=== PATIENT | male | born 1955 | race Caucasian/White ===

== ENCOUNTER 2023-05-30 08:14 | Day surgery (SDC) | payer BC ==
[2023-05-29 15:46] LABS: BASOPHILS # (AUTO) 0.1 X10'3 (0-0.2); BASOPHILS % (AUTO) 0.9 % (0-1); EOSINOPHILS # (AUTO) 0.3 X10'3 (0-0.9); EOSINOPHILS % (AUTO) 3.3 % (0-6); LYMPHOCYTES # (AUTO) 1.5 X10'3 (1.1-4.8); LYMPHOCYTES % (AUTO) 16.9 % (21-51); MEAN CORPUSCULAR HEMOGLOBIN 33.4 PG (27.0-31.0); MEAN CORPUSCULAR HGB CONC 35.1 g/dL (33.0-36.5); MEAN CORPUSCULAR VOLUME 95.3 FL (78-98); MEAN PLATELET VOLUME 9.4 FL (7.4-10.4); MONOCYTES # (AUTO) 0.7 X10'3 (0-0.9); MONOCYTES % (AUTO) 8.3 % (2-12); NEUTROPHILS # (AUTO) 6.1 X10'3 (1.8-7.7); NEUTROPHILS % (AUTO) 70.6 % (42-75); PRE OP HEMATOCRIT 45.5 % (42.0-52.0); PRE OP HEMOGLOBIN 15.9 g/dL (14.0-17.9); PRE OP PLATELET COUNT 217 X10'3 (140-440); PRE OP WHITE BLOOD COUNT 8.6 10'3 (4.8-10.8); RED BLOOD COUNT 4.77 X10'6 (4.70-6.10); RED CELL DISTRIBUTION WIDTH 12.9 % (11.5-14.5)
[2023-05-29 15:58] LABS: ALBUMIN 4.1 G/DL (3.4-5.0); ALBUMIN/GLOBULIN RATIO 1.3 (1.1-1.5); ALKALINE PHOSPHATASE 71 IU/L (46-116); BLOOD UREA NITROGEN 16 MG/DL (7-18); BUN/CREATININE RATIO 18.6 (10.0-20.0); CALCIUM 9.3 MG/DL (8.5-10.1); CHLORIDE 103 MMOL/L (99-107); CREATININE 0.86 MG/DL (0.60-1.10); PRE OP ALT 73 U/L (30-65); PRE OP ANION GAP 8 (8-16); PRE OP AST 28 U/L (10-37); PRE OP BILIRUB, TOTAL 0.6 MG/DL (0.0-1.0); PRE OP GLUCOSE 101 MG/DL (70-104); PRE OP POTASSIUM 3.9 MMOL/L (3.4-5.1); PRE OP SODIUM 140 MMOL/L (135-145); TOTAL CARBON DIOXIDE 28.8 MMOL/L (24-32); TOTAL PROTEIN 7.2 G/DL (6.4-8.2); eCRCL 77 ML/MIN; eGFR 88 ML/MIN
[2023-05-30] VITALS (12 sets, daily range): BP systolic 135–157; BP diastolic 68–87; PULSE 52–69; RESP 13–16; TEMP 98.4; O2SAT 95–100
[~2023-05-30] VITALS: Ht 170.2 cm; Wt 81.6 kg
[~2023-05-30 08:14] MED LIST: AMLO-139 PO; ASCO250T68 PO; CARV40CP7 PO; CHOL500050 PO; DOCUMENT DATE & TIME OF BETA-BLOCKER PO ONE; FEBU40TA3 PO; MAGN250T11 PO; METF-437 PO; OMEP20CA16 PO; ZINC50TA PO; cefazolin 2gm/D5W 100mL 100 ML IV ONE; famotidine 20mg tablet PO ONE; ringers solution, lacted 1,000 ML IV SCH; tamsulosin 0.4mg capsule PO ONE
[2023-05-30] MEDS ORDERED: LIDOcaine 1% (10mg/ml)w/preservative inj. 20ml MDV ONE (10:46)
[2023-05-30] MEDS ORDERED: BUPIVAcaine/PF 2.5mg/ml (0.25%) 10ml vial ONE (10:46)
[2023-05-30] MEDS ORDERED: sevoflurane 250ml liquid IH ONE (10:57)
[2023-05-30] MEDS ORDERED: midazolam 1 mg/ML 2ml injection ONE (10:59)
[2023-05-30] MEDS ORDERED: fentaNYL/PF 50MCG/1 ML 2ML syringe ONE (10:59)
[2023-05-30] MEDS ORDERED: morphine 4 MG/ML inj SYRINge IV PRN (11:10)
[2023-05-30] MEDS ORDERED: proCHLORperazine 10 MG/2 ml inj IV PRN (11:10)
[2023-05-30] MEDS ORDERED: morphine 2 MG/ML inj. syringe IV PRN (11:10)
[2023-05-30] MEDS ORDERED: meperidine/PF 25mg/ml syringe IV PRN ×3 (11:10)
[2023-05-30] MEDS ORDERED: ondansetron/PF 4mg/2ml inj IV PRN (11:10)
[2023-05-30] MEDS ORDERED: ringers solution, lacted 1,000 ML IV SCH (11:10)
[2023-05-30] MEDS ORDERED: rocuronium 10mg/ml inj IV ONE (11:13)
[2023-05-30] MEDS ORDERED: LIDOcaine 2% (20mg/ml) 5ml vial ONE (11:13)
[2023-05-30] MEDS ORDERED: ondansetron/PF 4mg/2ml inj ONE (11:13)
[2023-05-30] MEDS ORDERED: dexamethasone sod phosphate 4mg/ml inj. ONE (11:13)
[2023-05-30] MEDS ORDERED: propofol inj 20 ML IV ONE (11:13)
[2023-05-30] MEDS ORDERED: acetaminophen 1,000mg/100ml IV 100 ML IV ONE (11:13)
[2023-05-30] MEDS ORDERED: LIDOCAINE 1% w/preservative (10 MG/ML) inj. 10mL VIAL IJ ONE (11:38)
[2023-05-30] MEDS ORDERED: BUPIVAcaine/PF 2.5 mg/ml (0.25%) 30ml vial IJ ONE (11:38)
[2023-05-30] MEDS ORDERED: glycopyrrolate 0.2mg/ml inj ONE (12:05)
[2023-05-30] MEDS ORDERED: neostigmine methylsulfate 1 MG/ML 10ml vial ONE (12:05)
[2023-05-30] MEDS ORDERED: HYDROcodone/acetaminophen 5mg/325mg tablet PO PRN (12:30)
== END 2023-05-30 15:39 | disposition home or self-care (01) ==
LOC: PRE-OP 08:14
PROVIDERS: ATTEND Surgery
DX: K40.90 Unilateral inguinal hernia, without obstruction or gangrene, not specified as recurrent (principal); I10 Essential (primary) hypertension; K21.9 Gastro-esophageal reflux disease without esophagitis; G47.33 Obstructive sleep apnea (adult) (pediatric); M10.9 Gout, unspecified; E11.9 Type 2 diabetes mellitus without complications; Z98.890 Other specified postprocedural states; Z79.899 Other long term (current) drug therapy; Z79.84 Long term (current) use of oral hypoglycemic drugs; Z72.89 Other problems related to lifestyle; Z80.0 Family history of malignant neoplasm of digestive organs; Z82.49 Family history of ischemic heart disease and other diseases of the circulatory system; Z81.8 Family history of other mental and behavioral disorders
CPT/HCPCS: 36415; 49650; 80053; 82948; 85025; 93005; C1781; J0131; J0690; J1100; J2250; J2405; J2704; J2710; J3010; J3490; J7030; J7120; S2900; Z7506; Z7508; Z7512; A4215; A4314; A4618